=== PATIENT | female | born 1995 | race Caucasian/White ===

== ENCOUNTER 2016-09-13 06:59 | Inpatient (IN) | payer OTHER ==
[~2016-09-13] VITALS: Ht 175.3 cm; Wt 111.1 kg
[2016-09-13 10:35] LABS: BUN/CREATININE RATIO 15 (0-10)
[2016-09-14 03:20] LABS: HEMOGLOBIN 10.5 gm/dl (12.3-15.3)
[2016-09-15] MEDS ORDERED: COLACE 100MG C100 MG PO (11:18)
[2016-09-15] MEDS ORDERED: NORCO 5-325 TA1 EACH PO (11:19)
[2016-09-15] MEDS ORDERED: IBUPROFEN600 MG PO (11:19)
== END 2016-09-15 14:28 | disposition home or self-care (01) | DRG 765 ==
LOC: OB 06:59
PROVIDERS: ADMIT Obstetrics & Gynecology
PROC: 10D00Z1 Extraction of Products of Conception, Low, Open Approach (ICD-10-PCS; principal; 2016-09-13 12:15)
DX: O34.211 Maternal care for low transverse scar from previous cesarean delivery (principal); O10.92 Unspecified pre-existing hypertension complicating childbirth; N85.8 Other specified noninflammatory disorders of uterus; O24.429 Gestational diabetes mellitus in childbirth, unspecified control; O69.81X0 Labor and delivery complicated by cord around neck, without compression, not applicable or unspecified; Z3A.38 38 weeks gestation of pregnancy; Z37.0 Single live birth
CPT/HCPCS: 36415; 80048; 81001; 82800; 82962; 84132; 85014; 85018; 85025; C9113; J0690; J1200; J2274; J2405; J2590; J2765; J3010; J7030; J7120; Q0163

== ENCOUNTER 2020-09-15 10:13 | Emergency (ER) | payer OTHER ==
[~2020-09-15 10:13] MED LIST: COLACE 100MG C100 MG PO; IBUPROFEN600 MG PO; NORCO 5-325 TA1 EACH PO
[2020-09-15] MEDS ORDERED: CYCLOBENZAPRINE10 MG PO (11:33)
[2020-09-15] MEDS ORDERED: IBU800 MG PO (11:34)
== END 2020-09-15 12:04 | disposition home or self-care (01) ==
LOC: ER1 10:13
DX: G89.18 Other acute postprocedural pain (principal); R10.84 Generalized abdominal pain
CPT/HCPCS: 71046; 93005; 99284

== ENCOUNTER 2021-01-30 15:37 | Emergency (ER) | payer OTHER ==
[~2021-01-30 15:37] MED LIST changes: +CYCLOBENZAPRINE10 MG PO; +IBU800 MG PO
[2021-01-30 17:37] LABS: HEMOGLOBIN 12.9 gm/dl (12.3-15.3); RED BLOOD COUNT 4.44 M/UL (4.00-5.10); WHITE BLOOD COUNT 7.9 K/UL (4.5-11.0)
[2021-01-30 18:19] LABS: BUN/CREATININE RATIO 11 (0-10)
== END 2021-01-30 17:51 | disposition home or self-care (01) ==
LOC: ER1 15:37
PROVIDERS: Physician Assistant
DX: R07.81 Pleurodynia (principal); M79.604 Pain in right leg
CPT/HCPCS: 71045; 80053; 82550; 82553; 83874; 84484; 85025; 85379; 93005; 93971; 99284